=== PATIENT | female | born 1995 | race Caucasian/White ===

== ENCOUNTER 2020-10-17 20:35 | Emergency (ER) | payer OTHER ==
[~2020-10-17 20:35] MED LIST: LODINE CAP 300300 MG PO
[2020-10-17 22:04] LABS: HEMOGLOBIN 12.8 gm/dl (12.3-15.3); RED BLOOD COUNT 4.5 M/UL (4.00-5.10); WHITE BLOOD COUNT 12.4 K/UL (4.5-11.0)
[2020-10-17 22:23] LABS: BUN/CREATININE RATIO 11 (0-10)
== END 2020-10-18 02:35 | disposition home or self-care (01) ==
LOC: ER1 20:35
PROVIDERS: Physician Assistant
DX: O9A.211 Injury, poisoning and certain other consequences of external causes complicating pregnancy, first trimester (principal); R10.9 Unspecified abdominal pain; Z3A.01 Less than 8 weeks gestation of pregnancy; Z88.0 Allergy status to penicillin
CPT/HCPCS: 76830; 80053; 81001; 83690; 84702; 84703; 85025; 86850; 86900; 86901; 87077; 87086; 87186; 99284